=== PATIENT | male | born 1975 | race Caucasian/White ===

== ENCOUNTER 2018-06-30 08:40 | Outpatient (CLI) | payer BC ==
--- NOTE | 2018-06-30 10:10 | RAD ---
CERVICAL SPINE SERIES THREE VIEWS WITH FLEXION AND EXTENSION: FINDINGS: There have been fusion changes across the C4-C5 and C5-C6 levels. There are disk implants at interve margarito disk levels. The C6-C7 level is not well visualized on this film. There appears to be some min imal disk narrowing. No abnormal motion is seen in flexion or extension. IMPRESSION: Postoperative changes of the spine. POS: TPC
== END 2018-06-30 08:41 | disposition home or self-care (01) ==
LOC: BICRAD 08:40
PROVIDERS: ATTEND Neurological Surgery
DX: M54.12 Radiculopathy, cervical region (principal); Z98.890 Other specified postprocedural states
CPT/HCPCS: 72040

== ENCOUNTER 2018-11-29 13:09 | Outpatient (CLI) | payer BC ==
--- NOTE | 2018-11-29 14:40 | MRI ---
MRI CERVICAL SPINE WITHOUT CONTRAST: 11/29/2018 HISTORY: Unspecified cord compression. COMPARISON: 06/13/2018 TECHNIQUE: Multiplanar, multisequence MR imaging of the cervical spine provided without contrast. FINDINGS: Sagittal STIR imaging demonstrates no focal area of osseous marrow edema. Mild degenerative change at the atlantoaxial interspace. Disc devices are present at C4-5 and C5-6. No anterolisthesis or retrolisthesis. No prevertebral soft tissue abnormality. C2-3: No significant central canal or neural foraminal stenosis. C3-4: There is disc space narrowing and disc desiccation with disc bulge and a central/right paracen tral annular tear. There is an associated central and right paracentral disc protrusion, which effaces the ventral aspect of the thecal sac and abuts the ventral aspect of the cord. Moderate bilat eral neural foraminal stenosis, right greater than left. C4-5: There is disc space narrowing. There is disc desiccation. There is mild central canal stenosis. There is bilateral facet and uncovertebral osteophyte formation, left greater than right with moderate/severe left and mild right neural foraminal stenosis. C5-6: Disc space narrowing and disc desiccation. Mild central canal stenosis. Mild left neural mir inal stenosis on the basis of facet and uncovertebral osteophyte formation. No significant right neural foraminal stenosis C6-7: There is disc space narrowing and disc desiccation with mild disc bulge. There is a right para central disc protrusion and associated annular tear effacing the ventral thecal sac and causing a moderate degree of right-sided central canal stenosis. Prominent uncovertebral osteophyte formation o n the right causes at least moderate right neural foraminal stenosis. Mild left neural foraminal stenosis suspected. C7-T1: Mild bilateral facet hypertrophy with no significant central canal or neural foraminal stenos is. There is no focal area of abnormal signal intensity identified within the cervical cord. The disc pathology mentioned above, most prominent on the right at C6-7 and C3-4, does not appear sig nificantly changed when compared to the prior examination. IMPRESSION: Multilevel cervical spine degenerative change as detailed above, most prominent at C3-4 a nd C6-7. Transcribed Date/Time: 11/29/2018 3:20 PM
== END 2018-11-29 13:10 | disposition home or self-care (01) ==
LOC: BICMRI 13:09
PROVIDERS: ATTEND Neurological Surgery
DX: G95.20 Unspecified cord compression (principal); M47.812 Spondylosis without myelopathy or radiculopathy, cervical region
CPT/HCPCS: 72141

== ENCOUNTER 2019-01-24 09:05 | Outpatient (CLI) | payer BC ==
--- NOTE | 2019-01-24 09:25 | RAD ---
EXAM: 3 views of the cervical spine HISTORY: Neck pain. Status post surgery. COMPARISON: None FINDINGS: AP, lateral, and open mouth odontoid views of the cervical spine shows the patient to be st atus post fusion of the cervical spine from C4 through C6. Artificial disks are seen at C3/4 and C6/7. No perihardware lucency is seen. No prevertebral soft tissue swelling is seen. IMPRESSION: Postsurgical changes of the cervical spine without evidence of complication.
== END 2019-01-24 09:06 | disposition home or self-care (01) ==
LOC: TBSIIMAG 09:05
PROVIDERS: ATTEND Neurological Surgery
DX: M50.10 Cervical disc disorder with radiculopathy, unspecified cervical region (principal)
CPT/HCPCS: 72040